=== PATIENT | female | born 1960 | race Caucasian/White ===

== ENCOUNTER → 2017-07-03 | Outpatient (CLI) | payer OTHER ==
[~2017-07-03] MED LIST: BUPRTAB PO; EPP3/2 IM; FLVHFAUNK; FLX10 PO; HOME1TAB18; HYOS1TAB PO; IMDSR30 PO; LEVAAER2; LISI-729 PO; MELO7.5T5 PO; METO25TA3 PO; NITR1CAP11 PO; ONDA8TAB7 PO; OXYC-57 PO; POLYSOL50; PRD/1 PO; PROB1CAP27; PROM25TA PO; PRT/20 PO; ROPI0.5T15 PO; SULF1TAB92 PO; TRAM-10 PO; TYLER650 PO; XNX25 PO
--- NOTE | 2017-07-03 14:22 | DIAGNOSTIC IMAGING REPORT ---
CHEST 2 VIEWS ROUTINE HISTORY: ACUTE BRONCHITIS, COPD, EMPHYSEMA LUNG COMPARISON: Chest 07/06/2010. FINDINGS: The lungs are hyperexpanded with mild apical predominant emphysematous changes. This remains unchanged. No new focal lung consolidations to suggest pneumonia. No evidence for pulmonary edema. Prior internal fixation of a left clavicle fracture. The hardware is intact. No pleural fusions. No pneumothorax. Cholecystectomy. IMPRESSION: Mild emphysema. No acute cardiopulmonary process. Electronically signed by: Claudio Wei M.D. 07/03/2017 2:21 PM Dictated Date/Time: 07/03/2017 2:19 PM
== END | disposition home or self-care (01) ==
LOC: C.RAD1850 14:07
PROVIDERS: ATTEND Internal Medicine Cardiovascular Disease
DX: J20.9 Acute bronchitis, unspecified (principal); J44.9 Chronic obstructive pulmonary disease, unspecified; J43.9 Emphysema, unspecified

== ENCOUNTER → 2018-01-16 | Outpatient (CLI) | payer OTHER ==
[~2018-01-16] MED LIST changes: -METO25TA3 PO; +METO25TA4 PO; -NITR1CAP11 PO; +NITR50CA PO
[2018-01-16 18:15] LABS: BLOOD UREA NITROGEN 16 mg/dl (7-18); CALCIUM 9.3 mg/dl (8.5-10.1); CARBON DIOXIDE 26 mmol/L (21-32); CREATININE 0.71 mg/dl (0.60-1.20); GLUCOSE 85 mg/dl (70-99); POTASSIUM 4.1 mmol/L (3.5-5.1); SODIUM 137 mmol/L (136-145)
== END | disposition home or self-care (01) ==
LOC: C.LABMFLN 12:20
PROVIDERS: ATTEND Physician Assistant Medical
DX: R00.2 Palpitations (principal)